=== PATIENT | female | born 2000 | race Caucasian/White ===

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

== ENCOUNTER 2022-01-06 09:17 | Emergency (ER) | payer MEDICAID, SELFPAY ==
[2022-01-06 09:18] VITALS: BP 125/83; PULSE 93; RESP 14; TEMP 36.2; O2SAT 98; BMI 21.7
--- NOTE | 2022-01-06 09:57 | EX.ED.DYSGE1 ---
HPI History of Present Illness Chief Complaint: Cold Sx Informant: patient Narrative Narrative: Presents today with 1 coughing episode with phlegm with specks of blood in it today. No fevers headache dyspnea or chest pains. States yesterday had vomiting that subsided. She is drinking oral fluids. She denies any loss of taste or smell. She presents requesting COVID testing. She had COVID in the past. She is not vaccinated. She vapes. Denies recent travel or surgeries. No history of PE or DVT. Prior similar symptoms: No PFSH PFSH Medical History (Updated 01/06/22 @ 10:[address] Prabhu Hair DO) Back pain Headache Knee pain Home Medications ondansetron 4 mg PO Q8H PRN PRN #10 tablet 12/20/20 [Rx Last Taken Unknown] Allergy/AdvReac Type Severity Reaction Status Date / Time No Known Allergies Allergy Verified 01/06/22 09:18 Social History Smoking Status: Never smoker alcohol intake: never substance use type: does not use caffeine: Yes what type of physical activity do you participate in: none seatbelt use: always do you feel safe at home: Yes additional social history: Boyfriend-Jhonathan ROS ROS ED Constitutional Constitutional ED: Denies chills, fever(s) or sweats Eyes Eyes: Denies change in vision ENT ENT ED: Denies dysphagia or sore throat Cardiovascular Cardiovascular: Denies chest pain, leg edema, palpitations or racing heartbeat Respiratory/Chest Respiratory/Chest: Reports cough; Denies dyspnea or dyspnea on exertion Gastrointestinal Gastrointestinal: Denies abdominal pain, diarrhea, nausea or vomiting Genitourinary Genitourinary ED: Denies dysuria, hematuria or urinary frequency Musculoskeletal Musculoskeletal: Denies back pain, extremity pain or neck pain Integumentary Denies rash or wounds Neurologic Neurologic: Denies headache(s), paresthesias or weakness EXAM Physical Exam Const Vital Signs: 01/06/22 09:18 01/06/22 09:25 Temperature 97.2 F L Temperature Source Temporal Pulse Rate 93 Respiratory Rate 14 Respiratory Effort Normal Non-Labored Respiratory Pattern Normal Blood Pressure 125/83 H Blood Pressure Mean 97 Pulse Ox 98 Oxygen Delivery Method Room Air Positive well nourished and well developed General Appearance ED: well developed and NAD HEENT Reports moist mucous membranes normocephalic and atraumatic Eyes PERRL, EOMs intact bilaterally and conjunctivae normal General Eye ED: Yes normal appearance of both eyes Neck no lymphadenopathy and supple General: Negative for tenderness Chest Wall Chest: Negative for tenderness Resp normal respiratory effort and normal air movement Effort and Inspection: symmetric chest movement; Negative for respiratory distress Cardio regular rate, regular rhythm and no murmurs Peripheral Pulses: pulses 2+ throughout GI normal to inspection, nondistended, normoactive bowel sounds and non-tender Palpation: Negative for guarding or rebound tenderness present Back/Spine no CVA tenderness and no thoracic nor lumbar tenderness Extremity normal to inspection General Extremety ED: Negative for edema or tenderness General Extremity: Negative for edema Neuro oriented x3 and no sensory deficits noted Sensorium / Orientation: awake and alert Skin no rashes or lesions noted and no wounds MDM MDM MDM Narrative Medical decision making narrative: Vital signs completely normal pulse ox 98%. No respiratory distress. COVID influenza nasal swab both negative. I discussed viral syndrome. She reports mild speck of blood on her cough with sputum today. I am clinically not concerned for PE. Discussed cessation of her vaping. Work note was given. Follow-up given as an outpatient. Return precautions. All questions were answered. Discharge Plan Triage Chief Complaint: Cold Sx ED Provider: Prabhu Hair Dx/Rx/DC Orders Clinical Impression: Upper respiratory infection, viral, Cough Instructions: ED URI, Viral, No Abx (Adult) Prescriptions: No Action ondansetron 4 MG tablet 4 mg PO Q8H PRN PRN (Reason: Nausea) Qty: 10 RF: 0 Primary Care Provider: Care Physician,No Primary Referrals: Elena Lopez [NON-STAFF] - 1 Week Care Physician,No Primary [Primary Care Provider] - Activity Restrictions/Additional Instructions: COVID and influenza negative. Monitor symptoms. Follow-up as an outpatient. Disposition Disposition: Home, Self Care
== END 2022-01-06 11:07 | disposition home or self-care (01) ==
PROVIDERS: Emergency Provider Emergency Medicine; Visit Provider Emergency Medicine
DX: J06.9 Acute upper respiratory infection, unspecified (principal); Z86.16 Personal history of COVID-19
CPT/HCPCS: 87428; 99282

== ENCOUNTER 2022-03-05 17:58 | Emergency (ER) | payer MEDICAID, SELFPAY ==
[2022-03-05 17:59] VITALS: BP 117/71; PULSE 91; RESP 15; TEMP 36.8; O2SAT 98; BMI 23.6
--- NOTE | 2022-03-05 18:11 | EDS_ITS ---
HPI HPI - GI History of Present Illness Chief Complaint: Abd Pain Informant: patient Abdominal Pain/Flank Pain Onset: Weeks (Onset 2 weeks ago) Context: Sudden Onset Timing: Intermittent Quality: - (Like someone sticking a big needle into my abdomen) [facility] Medical History (Updated 03/05/22 @ 19:[address] Eliceo Seay MD) Back pain Headache Knee pain Home Medications nitrofurantoin monohydrate/macrocrystals 100 mg capsule 100 mg PO Q12 #10 CAPSULES 03/05/22 [Rx Last Taken Unknown] Allergy/AdvReac Type Severity Reaction Status Date / Time No Known Allergies Allergy Verified 01/06/22 09:18 Social History Smoking Status: Never smoker alcohol intake: never substance use type: does not use caffeine: Yes what type of physical activity do you participate in: none seatbelt use: always do you feel safe at home: Yes additional social history: Boyfriend-Jhonathan EXAM Physical Exam Const Vital Signs: 03/05/22 17:59 Temperature 98.2 F Temperature Source Temporal Pulse Rate 91 Respiratory Rate 15 Blood Pressure 117/71 Blood Pressure Mean 86 Pulse Ox 98 Oxygen Delivery Method Room Air MDM MDM MDM Narrative Medical decision making narrative: Differentials abdominal pain unknown etiology, biliary disease, urinary tract infection. Lab Data Attestation: I reviewed the patient's lab results. Lab results narrative: Patient does have findings consistent with urinary tract infection. Specimen is not contaminated Labs: Laboratory Results - last 24 hr 03/05/22 03/05/22 03/05/22 18:20 18:20 18:20 WBC 5.8 RBC 4.41 Hgb 13.3 Hct 39.0 MCV 88.4 MCH 30.2 MCHC 34.1 RDW Std Deviation 40.4 RDW Coeff of Manuel 12.5 Plt Count 215 MPV 9.9 Immature Gran % (Auto) 0.200 Neut % (Auto) 57.1 Lymph % (Auto) 33.6 [place]ke % (Auto) 8.3 Eos % (Auto) 0.5 Baso % (Auto) 0.3 Absolute Neuts (auto) 3.3 Absolute Lymphs (auto) 1.94 Nucleated RBC % 0 Total Bilirubin 0.20 Direct Bilirubin 0.11 AST 12 L ALT 26 Alkaline Phosphatase 61 Total Protein 7.3 Albumin 3.8 Globulin 3.5 Lipase 105 Urine Color Yellow Urine Clarity Cloudy Urine pH 6.5 Ur Specific [place] 1.015 Urine Protein 15 H Urine Glucose (UA) Normal Urine Ketones Negative Urine Occult Blood 10 H Urine Nitrite Positive H Urine Bilirubin Negative Urine Urobilinogen Normal Ur Leukocyte Esterase 500 H Urine RBC 0-5 SEEN Urine WBC 50-100 SEEN Ur Squamous Epith Cells 5-10 SEEN Amorphous Sediment 1+ URATE Urine Bacteria 2+ Urine Mucus 0 SEEN Discharge Plan Triage Chief Complaint: Abd Pain ED Provider: Eliceo Seay Dx/Rx/DC Orders Clinical Impression: Acute epigastric pain, Urinary tract infection Instructions: ED Abdominal Pain Unkn Cause Fem, ED CYSTITIS Female Adult Prescriptions: New nitrofurantoin monohyd/m-cryst [nitrofurantoin monohyd/m-cryst] 100 mg capsule 100 mg PO Q12 Qty: 10 0RF Primary Care Provider: Care Physician,No Primary Referrals: Care Physician,No Primary [Primary Care Provider] - Doctor,Your [STAFF PHYSICIAN] - Disposition Disposition: Home, Self Care
[2022-03-05 18:30] LABS: Mucous, Urine 0 SEEN /hpf (<or=2+)
[2022-03-05 18:32] LABS: Color, Urine Yellow (Yellow); Glucose, Dipstick Normal (Normal); Ketone-Dipstick Negative (Negative); Leukocyte Esterase-Dipstick 500 /ul (Negative); Nitrite-Dipstick Positive (Negative); Occult Blood-Urine 10 /ul (Negative); Protein-Dipstick 15 mg/dl (Negative); Specific Gravity, Urine 1.015 (1.002-1.030); Urine Bilirubin Dipstick Negative (Negative); Urine Clarity Cloudy (Clear); Urine Urobilinogen Normal (Normal); Urine pH 6.5 (5.0 - 8.0)
[2022-03-05 18:35] LABS: Absolute Lymphocyte Count 1.94 X10^3/uL (0.83-4.51); Absolute Neutrophil Count 3.3 X10^3/uL (2.0-7.7); Basophil# 0.02 X10^3/uL; Basophil% 0.3 % (0-1); Eosinophil# 0.03 X10^3/uL; Eosinophils% 0.5 % (0-5); Hemoglobin 13.3 g/dL (12.0-15.0); Lymphocyte # 1.94 X10^3/ul (0.83-4.51); Lymphocyte % 33.6 % (19-41); Mean Corp Hgb Conc 34.1 g/dL (32-36); Mean Corpuscular Hgb 30.2 pg (27.0-32.0); Mean Corpuscular Volume 88.4 fL (81-99); Mean Platelet Vol. 9.9 fl (6.2-12.0); Monocyte# 0.48 X10^3/uL; Monocyte% 8.3 % (0-10); NRBC Flagged by Analyzer 0 % (0-5); Neutrophil # 3.29 X10^3/uL (2.7-7.7); Neutrophil % 57.1 % (47-70); Platelet Count 215 K/mm3 (150-450); RBC Distribution Width CV 12.5 % (11.6-14.6); RBC Distribution Width SD 40.4 fl (35.1-43.9); Red Blood Count 4.41 M/mm3 (4.2-5.4); White Blood Count 5.8 K/mm3 (4.4-11.0)
[2022-03-05 18:40] LABS: AST(SGOT) 12 U/L (15-37); Alanine Aminotransfer ALT/SGPT 26 U/L (13-56); Albumin, Serum 3.8 g/dL (3.2-5.0); Alkaline Phosphatase 61 U/L (45-117); Bilirubin, Direct 0.11 mg/dL (0.00-0.30); Globulin 3.5 g/dL (2.2-4.2); Lipase 105 U/L (73-393); Protein, Total 7.3 g/dL (6.4-8.2)
[2022-03-05 18:50] LABS: Bacteria 2+ /hpf (None Seen); Red Blood Cells-Urine 0-5 SEEN /hpf (0-5); Squamous Epithelial Cells - UA 5-10 SEEN /hpf (5-10); White Blood Cells 50-100 SEEN /hpf (0-5)
[2022-03-05 18:51] LABS: Amorphous Sediment 1+ URATE
[2022-03-05] MEDS: Nitrofurantoin Macrocrystals 100 MG Capsule PO (19:38)
== END 2022-03-05 19:41 | disposition home or self-care (01) ==
PROVIDERS: Emergency Provider Emergency Medicine; Visit Provider Emergency Medicine
DX: N39.0 Urinary tract infection, site not specified (principal); R10.13 Epigastric pain
CPT/HCPCS: 80076; 81001; 83690; 85025; 99284; A4216

== ENCOUNTER 2022-04-03 18:26 | Emergency (ER) | payer MEDICAID, SELFPAY ==
[2022-04-03 18:27] VITALS: BP 102/63; PULSE 109; RESP 18; TEMP 36.4; O2SAT 98; BMI 22.7
--- NOTE | 2022-04-03 19:34 | CT_ITS ---
STUDY: CT Abdomen And Pelvis W/ Contrast Injection 04/03/2022 8:31 PM REASON FOR EXAM: Female, 22 years old. ABDOMINAL PAIN abdominal pain TECHNIQUE: Transaxial images were obtained without oral contrast, and with IV 100mL Isovue-300 intravenous contrast. Individualized dose optimization techniques were used for this CT. COMPARISON: 12.23.20 FINDINGS: The visualized lung bases are unremarkable. The visualized portions of the heart are within normal limits. Unremarkable liver. Unremarkable gallbladder and extrahepatic biliary system. Stable hypodensity of the spleen. Unremarkable pancreas. Unremarkable bilateral adrenal glands. No acute findings of the right kidney. No acute findings of the left kidney. Unremarkable visualized stomach. Unremarkable small intestine. Unremarkable colon. The appendix is visualized and appears unremarkable. There are no acute findings of the abdominal aorta. Unremarkable inferior vena cava. Subcentimeter mesenteric lymph nodes. Unremarkable urinary bladder. Normal visualized uterus. Unremarkable abdominal wall. Unremarkable osseous structures. CT/Abdomen/Pelvis W IV Cont ONLY IMPRESSION: (NOT LISTED IN ORDER OF SIGNIFICANCE) There are no acute findings. Other findings as above. Electronically Signed: Devin Swartz MD at 20:42 EDT Reading Location ID and State: [facility] / [place] , Service support ,
--- NOTE | 2022-04-03 19:34 | EX.ED.DYSGE1 ---
HPI History of Present Illness Chief Complaint: Abd Pain Informant: patient Narrative Narrative: 22-year-old female states that she was in the emergency department with abdominal pain about 1 month ago. She states that the pain is continued to worsen. She did not understand primary care or how to see a doctor so she has not followed up. She notes the pain is always there and is bilateral. She notes nausea and vomiting basically daily. She notes her bowel movements are normal. No fever. She is unsure about weight loss or weight gain. The patient notes that at one point she was told she had a cyst on her spleen. [facility] Medical History (Updated 04/03/22 @ 21:[address] Bryon Booth DO) Back pain Headache Knee pain Home Medications dicyclomine 20 mg tablet 20 mg PO TID PRN abdominal pain #30 tabs 04/03/22 [Rx Last Taken Unknown] pantoprazole 40 mg tablet,delayed release (Protonix) 40 mg PO DAILY #30 tabs 04/03/22 [Rx Last Taken Unknown] Allergy/AdvReac Type Severity Reaction Status Date / Time No Known Allergies Allergy Verified 04/03/22 18:27 Social History Smoking Status: Never smoker alcohol intake: never substance use type: does not use caffeine: Yes what type of physical activity do you participate in: none seatbelt use: always do you feel safe at home: Yes additional social history: Boyfriend-Jhonathan ROS ROS ED Constitutional Constitutional ED: Denies chills or weight loss Eyes Eyes: Denies change in vision or diplopia ENT ENT ED: Denies ear pain, rhinorrhea or sore throat Cardiovascular Cardiovascular: Denies chest pain, orthopnea, palpitations or racing heartbeat Respiratory/Chest Respiratory/Chest: Denies cough, dyspnea or orthopnea Gastrointestinal Gastrointestinal: Reports abdominal pain, nausea and vomiting; Denies diarrhea Genitourinary Genitourinary ED: Denies dysuria, hematuria or urinary frequency Musculoskeletal Musculoskeletal: Denies arthralgias or myalgias Integumentary Denies abscess or rash Neurologic Neurologic: Denies headache(s) or weakness Psychiatric Psychiatric: Denies anxiety, depression, suicidal ideation or suicidal thoughts Endocrine Endocrinology: Denies polydipsia, polyphagia or polyuria Allergic/Immunologic Allergic/Immunologic ED: Denies mouth swelling, tongue swelling or urticaria EXAM Physical Exam Const Vital Signs: 04/03/22 18:27 Temperature 97.6 F L Temperature Source Temporal Pulse Rate 109 H Respiratory Rate 18 Blood Pressure 102/63 Blood Pressure Mean 76 Pulse Ox 98 Oxygen Delivery Method Room Air Positive well nourished and well developed General Appearance ED: well developed HEENT Reports normocephalic, head/scalp atraumatic and moist mucous membranes Eyes PERRL and EOMs intact bilaterally Neck no lymphadenopathy, supple and no JVD Resp normal respiratory effort and clear to auscultation bilaterally Cardio regular rate, regular rhythm and no murmurs GI GI Narrative: Patient is tenderness in the right middle quadrant and the left middle quadrant Inspection: Negative for abdominal distention Auscultation: normoactive bowel sounds Palpation: soft; Negative for guarding, mass or rebound tenderness present Back/Spine no CVA tenderness and normal ROM Extremity normal to inspection General Extremety ED: Negative for edema General Extremity: Negative for edema Neuro oriented x3 and CN's II-XII intact bilaterally Sensorium / Orientation: alert Motor Exam: strength 5/5 throughout Psych mental status grossly normal Mood & Affect: Negative for depressed or tearful Skin no rashes or lesions noted and no wounds MDM MDM MDM Narrative Medical decision making narrative: Basic labs were normal test is negative. CT the abdomen pelvis does not demonstrate anything acute to explain the patient's symptoms. I will write for the patient have some Protonix as well as Bentyl she would benefit from a GI work-up she also really should benefit from primary care establishment now understands with whom to call to make that appointment with Lab Data Attestation: I reviewed the patient's lab results. Labs: Laboratory Results - last 24 hr 04/03/22 04/03/22 04/03/22 19:39 19:39 19:39 WBC 8.2 RBC 4.50 Hgb 13.4 Hct 39.9 MCV 88.7 MCH 29.8 MCHC 33.6 RDW Std Deviation 39.4 RDW Coeff of Manuel 12.2 Plt Count 185 MPV 10.0 Immature Gran % (Auto) 0.400 Neut % (Auto) 67.2 Lymph % (Auto) 25.8 [place] % (Auto) 6.3 Eos % (Auto) 0.2 Baso % (Auto) 0.1 Absolute Neuts (auto) 5.5 Absolute Lymphs (auto) 2.11 Nucleated RBC % 0 Sodium 139 Potassium 3.7 Chloride 107 Carbon Dioxide 27.0 Anion Gap 5 BUN 10 Creatinine 0.83 Estim Creat Clear Calc 112.99 Est GFR (MDRD) Af Amer 112 Est GFR (MDRD) Non-Af 93 BUN/Creatinine Ratio 12.0 Glucose 83 Calcium 9.3 Total Bilirubin 0.40 AST 20 ALT 29 Alkaline Phosphatase 64 Total Protein 7.4 Albumin 3.9 Globulin 3.5 Albumin/Globulin Ratio 1.1 Lipase 76 Serum , Qual NEGATIVE Radiography Diagnostic Testing: Clinical Impression(s) from Imaging Studies Abdomen/Pelvis CT 04/03/22 19:34 IMPRESSION: (NOT LISTED IN ORDER OF SIGNIFICANCE) There are no acute findings. Other findings as above. Electronically Signed: Devin Swartz MD at 20:42 EDT Reading Location ID and State: [facility][note 3] / [place] , Service support , Discharge Plan Triage Chief Complaint: Abd Pain ED Provider: Bryon Booth Dx/Rx/DC Orders Clinical Impression: Abdominal pain Instructions: ED Abdominal Pain Unkn Cause Fem Prescriptions: New pantoprazole [Protonix] 40 mg tablet,delayed release (DR/EC) 40 mg PO DAILY Qty: 30 0RF dicyclomine 20 mg tablet 20 mg PO TID PRN (Reason: abdominal pain) Qty: 30 0RF Primary Care Provider: Care Physician,No Primary Referrals: Friend,Adam, DO [Med Staff - Active Staff] - As soon as possible (For gastroenterology evaluation) Care Physician,No Primary [Primary Care Provider] - Disposition Disposition: Home, Self Care
[2022-04-03] MEDS: Ketorolac 30 MG/ML Syringe IV (19:38)
[2022-04-03 19:55] LABS: Mucous, Urine 0 SEEN /hpf (<or=2+); Red Blood Cells-Urine 0 SEEN /hpf (0-5)
[2022-04-03 20:08] LABS: Internal QC Validated? YES +Cl - CLEAR BKGD; Pregnancy, Serum, hCG Quali. NEGATIVE Negative
[2022-04-03 20:16] LABS: ALB/GLOB Ratio 1.1 RATIO (0.9-2.4); AST(SGOT) 20 U/L (15-37); Alanine Aminotransfer ALT/SGPT 29 U/L (13-56); Albumin, Serum 3.9 g/dL (3.2-5.0); Alkaline Phosphatase 64 U/L (45-117); Anion Gap 5 (5-15); BUN 10 mg/dL (7-18); Calcium,Total 9.3 mg/dL (8.5-10.1); Chloride 107 mmol/L (98-107); Creatinine, Serum 0.83 mg/dL (0.55-1.02); EST Glomerular Filtration Rate 93 mL/min (>60); Est Glom Filt Rate - Afr Amer 112 mL/min (>60); Estimated Creatinine Clearance 112.99 ml/min; Globulin 3.5 g/dL (2.2-4.2); Glucose 83 mg/dL (74-106); Lipase 76 U/L (73-393); Potassium 3.7 mmol/L (3.5-5.1); Protein, Total 7.4 g/dL (6.4-8.2); Sodium Level 139 mmol/L (136-145)
[2022-04-03 20:33] LABS: Absolute Lymphocyte Count 2.11 X10^3/uL (0.83-4.51); Absolute Neutrophil Count 5.5 X10^3/uL (2.0-7.7); Basophil# 0.01 X10^3/uL; Basophil% 0.1 % (0-1); Eosinophil# 0.02 X10^3/uL; Eosinophils% 0.2 % (0-5); Hematocrit 39.9 % (37-47); Hemoglobin 13.4 g/dL (12.0-15.0); Lymphocyte # 2.11 X10^3/ul (0.83-4.51); Lymphocyte % 25.8 % (19-41); Mean Corp Hgb Conc 33.6 g/dL (32-36); Mean Corpuscular Hgb 29.8 pg (27.0-32.0); Mean Corpuscular Volume 88.7 fL (81-99); Monocyte# 0.52 X10^3/uL; Monocyte% 6.3 % (0-10); NRBC Flagged by Analyzer 0 % (0-5); Neutrophil % 67.2 % (47-70); Platelet Count 185 K/mm3 (150-450); RBC Distribution Width CV 12.2 % (11.6-14.6); RBC Distribution Width SD 39.4 fl (35.1-43.9); White Blood Count 8.2 K/mm3 (4.4-11.0)
[2022-04-03 21:20] VITALS: BP 118/62; PULSE 62; RESP 18; O2SAT 98
[2022-04-03 23:21] LABS: Color, Urine Yellow (Yellow); Glucose, Dipstick Normal (Normal); Ketone-Dipstick 5 mg/dl (Negative); Leukocyte Esterase-Dipstick 500 /ul (Negative); Nitrite-Dipstick Negative (Negative); Occult Blood-Urine Negative /ul (Negative); Protein-Dipstick 30 mg/dl (Negative); Urine Bilirubin Dipstick Negative (Negative); Urine Clarity Sl. Cloudy (Clear); Urine Urobilinogen Normal (Normal)
[2022-04-03 23:39] LABS: Bacteria 1+ /hpf (None Seen); Squamous Epithelial Cells - UA 0-5 SEEN /hpf (5-10); White Blood Cells 10-25 SEEN /hpf (0-5)
== END 2022-04-03 21:24 | disposition home or self-care (01) ==
PROVIDERS: Emergency Provider Emergency Medicine; Visit Provider Emergency Medicine
DX: R10.9 Unspecified abdominal pain (principal)
CPT/HCPCS: 74177; 80053; 81001; 83690; 84703; 85025; 96374; 99283; Q9967; A4216